=== PATIENT | male | born 1995 | race Caucasian/White ===

== ENCOUNTER 2016-06-07 19:34 | Emergency (ER) | payer BC, OTHER ==
[2016-06-07 19:46] VITALS: TEMP 97.7; BMI 28.5
[2016-06-07 19:59] LABS: LEUKOCYTES/URINE NEG (NEGATIVE); NITRITE/URINE NEG (NEGATIVE); RBC/URINE 0-2 (0-2); URINE OCCULT BLOOD NEG (NEG/TRACE); WBC/URINE 0-2 (0-2)
[2016-06-07] MEDS ORDERED: ONDANSETRON HCL 4 MG/2 ML VIAL IV ONE (20:10)
[2016-06-07] MEDS ORDERED: MORPHINE 4 MG/ML INJECTION IV ONE (20:10)
[2016-06-07] MEDS ORDERED: NS 1,000 ML IV ONE (20:10)
[2016-06-07 20:35] LABS: AUTOMATED BASOPHIL 0.5 % (0-2); AUTOMATED EOSINOPHIL 1.5 % (0-5); AUTOMATED LYMPH 34.8 % (17-44); AUTOMATED MONOCYTE 10.4 % (3-10); AUTOMATED NEUTROPHIL 52.8 % (45-76); MPV 8.7 fL (7.4-10.4)
[2016-06-07 20:47] LABS: BLOOD UREA NITROGEN 13 MG/DL (9-20); CALCULATED OSMOLALITY 268 MOs/Kg (270-290); CHLORIDE 103 mEq/L (98-107); GLUCOSE 86 MG/DL (70-99); SODIUM LEVEL 140 mEq/L (137-146)
[2016-06-07 20:48] LABS: CALCIUM 8.9 MG/DL (8.4-10.2); TOTAL PROTEIN 6.9 G/DL (6.3-8.2)
[2016-06-07] MEDS ORDERED: Pharmacy Review for Metformin - IV Contrast Given SCH (21:00)
--- NOTE | 2016-06-07 21:09 | EDPRACDOC ---
- General Information Chief Complaint: Abdominal Pain Stated Complaint: ABDOMINAL PAIN SENT BY [facility] Time Seen by Provider: 06/07/16 20:05 Information Source: Patient Mode Of Arrival: Car Home Medications: Home Medications Ondansetron [Zofran Odt] 4 mg PO Q6H PRN #20 tab.rapdis 06/07/16 Oxycodone Immediate Release [Oxycodone Immediate Release (OxyIR)] 5 mg PO Q6H PRN #20 tab 06/07/16 PEG-Electrolytes (Miralax) [Miralax] 17 gm PO DAILY #1 box 06/07/16 Allergies/Adverse Reactions: Allergies Allergy/AdvReac Type Severity Reaction Status Date / Time No Known Allergies Allergy Verified 06/07/16 19:46 - History of Present Illness Onset: [employer] HPI: PT PRESENTS WITH RLQ PAIN THAT BEGAN A COUPLE OF DAYS AGO. STATES HE WAS CONSTIPATED AND THEN BEGAN HAVING WATERY DIARRHEA. Pain Location: Reports: RLQ Pain Context: Reports: Spontaneous Pain Severity: Mild Pain Quality: Reports: Sharp, Stabbing Pain Radiation: Reports: No Radiation Adult Abdominal History: Denies: Abdominal Surgery, Urolithiasis, Bowel Obstruction, Similar Pain (dx) Modifying Factors: improves with: Nothing Associated Signs & Symptoms: Reports: Nausea, Diarrhea Oral Intake: Decreased Urinary Output: Normal ED Past Medical History - History Reviewed Yes Nurses notes reviewed and agree except as marked - Patient Medical History Psychological History: Denies: Depression - Social Medical History Smoking Status: Never smoker EDM Review of Systems - Review of Systems ROS Negative Except as Marked: Yes All systems reviewed and were negative except as marked - Physical Exam Constitutional: Alert Oriented to: Time, Person, Place Last recorded Vital Signs: Last Vital Signs Temp 97.7 F 06/07/16 19:42 Pulse 83 06/07/16 19:42 Resp 20 06/07/16 19:42 BP 128/85 06/07/16 19:42 Pulse Ox 96 06/07/16 19:42 Oxygen Pulse Oxygen Saturation 96 O2 Device Room Air Oxygen Flow Rate Fraction of Inspired Oxygen ( FIO2) - HEENT Head: Normal ( normocephalic) Eye Exam: Normal (PERRL, EOMI, Sclera white) Oropharynx: Normal (Pharynx:Moist without exudate,Gums-no swelling) Tympanic Membrane: Normal Nose: No Symptoms Reported (septum midline) Neck: Normal (FROM, trachea at midline) - Respiratory/Cardiovascular Respiratory: Normal - CTA (BBS clear to auscultation without adventitious sounds ) Cardiovascular: Normal (RRR without murmur, gallop or rub) - GI Auscultation: Normal (NABS) Palpation: Normal (Soft,No rebound or guarding, non distended) Tenderness: Mild, RLQ Zacarias's Sign: Negative Rectal Exam: Deferred - Musculoskeletal Back: Normal (Non-Tender) Extremities: Normal (Normal tone, Pulses 2+ No cyanosis or edema, FROM) - Integumentary Skin: Normal, Warm, Dry Lymphatics: Normal (no adenopathy) - Neurologic Memory Impaired: Normal Motor Function: Normal (Normal tone, Pulses 2+ No cyanosis or edema, FROM) Cranial Nerve: Normal (CN II-X11 intact sensation, strength 5/5) Cerebellar: Normal Mood Description: Normal Perception: Normal - Differential Diagnosis Appendicitis - Results All Results Reviewed and Normal except as Highlighted below: Yes 06/07/16 20:25 06/07/16 20:25 WBC 4.7 xk/uL (3.8-10.8) 06/07/16 20:25 RBC 4.65 xM/uL (4.70-6.10) L 06/07/16 20:25 Hgb 14.6 g/dL (14.0-18.0) 06/07/16 20:25 Hct 42.5 % (42-52) 06/07/16 20:25 MCV 91 fL (80-94) 06/07/16 20:25 MCH 31.5 pg (27-32) 06/07/16 20:25 MCHC 34.4 g/dl (33-36) 06/07/16 20:25 RDW 12.5 % (11.5-14.5) 06/07/16 20:25 Plt Count 200 xk/uL (130-400) 06/07/16 20:25 MPV 8.7 fL (7.4-10.4) 06/07/16 20:25 Neut % (Auto) 52.8 % (45-76) 06/07/16 20:25 Lymph % (Auto) 34.8 % (17-44) 06/07/16 20:25 Leslie % (Auto) 10.4 % (3-10) H 06/07/16 20:25 Eos % (Auto) 1.5 % (0-5) 06/07/16 20:25 Baso % (Auto) 0.5 % (0-2) 06/07/16 20:25 Absolute Neuts (auto) 2.44 xk/uL (1.7-8.2) 06/07/16 20:25 Absolute Lymphs (auto) 1.60 xk/uL (0.65-4.75) 06/07/16 20:25 Sodium 140 mEq/L (137-146) 06/07/16 20:25 Potassium 3.6 mEq/L (3.5-5.1) 06/07/16 20:25 Chloride 103 mEq/L (98-107) 06/07/16 20:25 Carbon Dioxide 24 mMOL/L (22-33) 06/07/16 20:25 Anion Gap 17 mEq/L (8-16) H 06/07/16 20:25 BUN 13 MG/DL (9-20) 06/07/16 20:25 Creatinine 0.90 MG/DL (0.66-1.25) 06/07/16 20:25 Estimated GFR (MDRD) > 60 mL/min (>=60) 06/07/16 20:25 Glucose 86 MG/DL (70-99) 06/07/16 20:25 Calculated Osmolality 268 MOs/Kg (270-290) L 06/07/16 20:25 Calcium 8.9 MG/DL (8.4-10.2) 06/07/16 20:25 Total Bilirubin 0.4 MG/DL (0.2-1.3) 06/07/16 20:25 AST 75 IU/L (17-59) H 06/07/16 20:25 ALT 104 IU/L (21-72) H 06/07/16 20:25 Alkaline Phosphatase 60 IU/L (38-126) 06/07/16 20:25 Total Protein 6.9 G/DL (6.3-8.2) 06/07/16 20:25 Albumin 4.0 G/DL (3.5-5.0) 06/07/16 20:25 Lipase 66 U/L (23-300) 06/07/16 20:25 Urine Color Jyoti 06/07/16 17:46 Urine Clarity Clear 06/07/16 17:46 Urine pH 6.0 (5.0-8.0) 06/07/16 17:46 Ur Specific [place] 1.020 (1.003-1.035) 06/07/16 17:46 Urine Protein 1+ (NEG/TRACE) H 06/07/16 17:46 Urine Glucose (UA) Neg (NEGATIVE) 06/07/16 17:46 Urine Ketones Neg (NEGATIVE) 06/07/16 17:46 Urine Occult Blood Neg (NEG/TRACE) 06/07/16 17:46 Urine Nitrite Neg (NEGATIVE) 06/07/16 17:46 Urine Bilirubin Neg (NEGATIVE) 06/07/16 17:46 Urine Urobilinogen <2.0 MG/DL (0-1) 06/07/16 17:46 Ur Leukocyte Esterase Neg (NEGATIVE) 06/07/16 17:46 Urine RBC 0-2 (0-2) 06/07/16 17:46 Urine WBC 0-2 (0-2) 06/07/16 17:46 Ur Epithelial Cells Occ 06/07/16 17:46 Urine Bacteria Few (NEG/FEW) 06/07/16 17:46 Urine Mucus Mod (NEG/OCC) H 06/07/16 17:46 Lab Results 06/07/16 06/07/16 06/07/16 20:25 20:25 17:46 WBC 4.7 RBC 4.65 L Hgb 14.6 Hct 42.5 MCV 91 MCH 31.5 MCHC 34.4 RDW 12.5 Plt Count 200 MPV 8.7 Neut % (Auto) 52.8 Lymph % (Auto) 34.8 Leslie % (Auto) 10.4 H Eos % (Auto) 1.5 Baso % (Auto) 0.5 Absolute Neuts (auto) 2.44 Absolute Lymphs (auto) 1.60 Sodium 140 Potassium 3.6 Chloride 103 Carbon Dioxide 24 Anion Gap 17 H BUN 13 Creatinine 0.90 Estimated GFR (MDRD) > 60 Glucose 86 Calculated Osmolality 268 L Calcium 8.9 Total Bilirubin 0.4 AST 75 H ALT 104 H Alkaline Phosphatase 60 Total Protein 6.9 Albumin 4.0 Lipase 66 Urine Color Jyoti Urine Clarity Clear Urine pH 6.0 Ur Specific [place] 1.020 Urine Protein 1+ H Urine Glucose (UA) Neg Urine Ketones Neg Urine Occult Blood Neg Urine Nitrite Neg Urine Bilirubin Neg Urine Urobilinogen <2.0 Ur Leukocyte Esterase Neg Urine RBC 0-2 Urine WBC 0-2 Ur Epithelial Cells Occ Urine Bacteria Few Urine Mucus Mod H Decision Time to Discharge: 22:00 - Departure Disposition: Home Condition: Stable Final Diagnosis: Abdominal pain Instructions: Acute Abdominal Pain (ED) Education/Counseling Given To: Patient Education/Counseling Given Regarding: Diagnosis, Treatment, Prognosis, Follow Up Referrals: Cosmo Park MD [Primary Care Provider] - One Week Prescriptions: Ondansetron [Zofran Odt] 4 mg PO Q6H PRN #20 tab.rapdis PRN Reason: Nausea/Vomiting Oxycodone Immediate Release [Oxycodone Immediate Release (OxyIR)] 5 mg PO Q6H PRN #20 tab PRN Reason: Pain PEG-Electrolytes (Miralax) [Miralax] 17 gm PO DAILY #1 box Additional Instructions: Drink sips of Gatorade every 2-3 minutes while awake. Do NOT drink large volumes of fluid at once. If you vomit, take the nausea-vomiting medicine prescribed, wait ~ 30 minutes, and restart the sipping process. Return to the Emergency Department if you think you are getting dehydrated, have persistent abdominal pain that is unrelenting, have worse or different symptoms, or any concerns.
--- NOTE | 2016-06-07 21:54 | DIRPT ---
CLINICAL DATA: Abdominal pain for 5 days. Constipation. EXAM: CT ABDOMEN AND PELVIS WITH CONTRAST TECHNIQUE: Multidetector CT imaging of the abdomen and pelvis was performed using the standard protocol following bolus administration of intravenous contrast. CONTRAST: 100 mL of Isovue 370 intravenous contrast COMPARISON: None. FINDINGS: Lung bases: Clear. Heart normal size. Liver, spleen, gallbladder, pancreas, adrenal glands: Normal. Kidneys, ureters, bladder: Normal. Lymph nodes: No enlarged lymph nodes. Ascites: None. Gastrointestinal: Moderate increased stool burden noted in the colon. There is no bowel wall thickening or mesenteric inflammation. Stomach and small bowel are unremarkable. Appendix not visualized. No evidence appendicitis. Musculoskeletal: Unremarkable. IMPRESSION: 1. No acute findings. 2. Appendix not visualized. No CT evidence of acute appendicitis. 3. Moderate increased stool in the colon. No bowel inflammation. Electronically Signed By: Gatito Meredith M.D. On: 06/07/2016 21:51
[2016-06-07 22:35] VITALS: BP 131/63; PULSE 82
== END 2016-06-07 22:35 | disposition home or self-care (01) ==
LOC: ED 19:34
DX: R10.9 Unspecified abdominal pain (principal)
CPT/HCPCS: 36415; 74177; 80053; 81001; 83690; 85025; 96361; 96374; 99283; A9698; J2405; J2270